=== PATIENT | male | born 1950 | race Caucasian/White ===

== ENCOUNTER 2017-02-11 11:46 | Inpatient (IN) | payer MEDICARE, OTHER ==
[~2017-02-11] VITALS: Ht 172.7 cm; Wt 92.3 kg
[~2017-02-11 11:46] MED LIST: CARV3.125; ENAL5TAB98; PACE200T4; SIMV20; Z.0.NO CURRENT MEDS
[2017-02-11 11:48] VITALS: BP 123/74; PULSE 79; RESP 18; TEMP 98; O2SAT 100
[2017-02-11] MEDS ORDERED: SODIUM CHLOR 0.9% 1000 ML INJ 1,000 ML IV ONE (11:53)
--- NOTE | 2017-02-11 11:58 | PD ---
HPI Chief Complaint: Stroke Alert Time Seen by Provider: 11:53 Travel History International Travel<30 days: No Contact w/Intl Traveler<30days: No Traveled to known affect area: No History of Present Illness HPI 66-year-old male patient with history of previous stroke with left-sided deficits the summer, presents to the ER today brought in by EMS because of aphasia that started while he was eating diner at around 11 AM. He apparently was drooling out of the corner of his mouth and speaking abnormally according to commercial production editor. He states that his speech is still not quite normal. He denies any other symptoms, chest pains, shortness of breath, new weakness or numbness, or any other issues. Stroke alert was called the field by EMS. Modifying Factors: None Associated Signs & Symptoms: Aphasia, stroke alert Risk Factors: Previous stroke PFSH Past Medical History Arthritis: Yes Cardiovascular Problems: Yes Cerebrovascular Accident: Yes Genitourinary: No Immune Disorder: No Musculoskeletal: Yes (R. ANKLE BONE FUSION, METAL PLATE R. FEMURAND CART. REMOVED FROM BOTH KNEES) Neurologic: No Psychiatric: No Reproductive: No Respiratory: No ?: Not Past Surgical History Abdominal Surgery: Yes (UMBIL. HERNIA REPAIR) Arteriovenous Shunt: No Cardiac Surgery: No Ear Surgery: No Endocrine Surgery: No Eye Surgery: No Genitourinary Surgery: Yes (INGUINAL HERNIA REPAIR ISAAC.) Gynecologic Surgery: No Insulin Pump: No Joint Replacement: No Oral Surgery: No Thoracic Surgery: No Social History Alcohol Use: Yes Tobacco Use: Yes Substance Use: No Allergies-Medications (Allergen,Severity, Reaction): Coded Allergies: diatrizoate meglumine (Unverified Allergy, Severe, Cardiac Arrest, 12/06/16 ) gadobenic acid (Unverified Allergy, Severe, Cardiac Arrest, 12/06/16) gadodiamide (Unverified Allergy, Severe, Cardiac Arrest, 12/06/16) gadoteridol (Unverified Allergy, Severe, Cardiac Arrest, 12/06/16) iodixanol (Unverified Allergy, Severe, Cardiac Arrest, 12/06/16) iohexol (Unverified Allergy, Severe, Cardiac Arrest, 12/06/16) Uncoded Allergies: ONE A DAY VIT (Allergy, Mild, 03/07/07) OWN SWEAT (Allergy, Mild, 03/07/07) Ppd skin test (Allergy, Mild, 03/07/07) ocean (Allergy, Mild, 03/07/07) Reported Meds & Prescriptions Reported Meds & Active Scripts Active Reported Vasotec (Enalapril Maleate) 5 Mg Tab Zocor (Simvastatin) 20 Mg Tab Coreg (Carvedilol) 3.125 Mg Tab Pacerone (Amiodarone HCl) 200 Mg Tab No Current Meds (Miscellaneous Medication) Misc Review of Systems Except as stated in HPI: all other systems reviewed are Neg Physical Exam Narrative GENERAL: Well-developed elderly white male patient currently in mild distress. Awake, alert, oriented 3. SKIN: Focused skin assessment warm/dry. HEAD: Atraumatic. Normocephalic. EYES: Pupils equal and round. No scleral icterus. No injection or drainage. ENT: No nasal bleeding or discharge. Mucous membranes pink and moist. NECK: Trachea midline. No JVD. CARDIOVASCULAR: Regular rate and rhythm. No murmur appreciated. RESPIRATORY: No accessory muscle use. Clear to auscultation. Breath sounds equal bilaterally. GASTROINTESTINAL: Abdomen soft, non-tender, nondistended. Hepatic and splenic margins not palpable. MUSCULOSKELETAL: No obvious deformities. No clubbing. No cyanosis. No edema. NEUROLOGICAL: Awake and alert. With notable left facial droop. No significant herniated drift. Mild aphasia. PSYCHIATRIC: Appropriate mood and affect; insight and judgment normal. Data Data Last Documented VS Vital Signs Date Time Temp Pulse Resp B/P (MAP) Pulse Ox O2 Delivery O2 Flow Rate FiO2 02/11/17 12:11 100 Room Air 02/11/17 12:11 59 112/54 (73) 02/11/17 11:48 98.0 18 Orders Orders Diet Npo (02/11/17 Lunch) Activity Bed Rest (02/11/17 ) Electrocardiogram (02/11/17 ) I-Stat Creatinine (02/11/17 11:53) I-Stat Profile (02/11/17 11:53) Prothrombin Time / Inr (Pt) (02/11/17 11:53) Act Partial Throm Time (Ptt) (02/11/17 11:53) Complete Blood Count With Diff (02/11/17 11:53) Fibrinogen (02/11/17 11:53) Creatine Kinase (Cpk) (02/11/17 11:53) Troponin I (02/11/17 11:53) Ua Includes Microscopic (02/11/17 11:53) Drug Screen, Random Urine (02/11/17 11:53) Type And Screen (02/11/17 11:53) Ct Brain W/O Iv Contrast(Rout) (02/11/17 ) Consult Neurology (02/11/17 ) Blood Glucose (02/11/17 11:53) Ecg Monitoring (02/11/17 11:53) Neuro Checks Q2HX12,Q4H (02/11/17 11:53) Nursing Bedside Swallow Assess .ONCE (02/11/17 11:53) Iv Access Insert/Monitor (02/11/17 11:53) NPO (02/11/17 11:53) Oximetry (02/11/17 11:53) Oxygen Administration (02/11/17 11:53) Sodium Chlor 0.9% 1000 Ml Inj (Ns 1000 M (02/11/17 11:53) Resp Oxygen Benja C Titrat 1-4 L (02/11/17 11:53) Cath For Specimen (02/11/17 11:53) (Hub Use Only)Inp Phy Cons/Ref (02/11/17 ) Aspirin (Aspirin) (02/11/17 12:45) Labs Laboratory Tests Test 02/11/17 11:50 White Blood Count 6.1 TH/MM3 Red Blood Count 4.85 MIL/MM3 Hemoglobin 14.6 GM/DL Bedside Hemoglobin 15.0 G/DL Hematocrit 43.3 % Bedside Hematocrit 44.0 % Mean Corpuscular Volume 89.3 FL Mean Corpuscular Hemoglobin 30.1 PG Mean Corpuscular Hemoglobin Concent 33.8 % Red Cell Distribution Width 13.8 % Platelet Count 190 TH/MM3 Mean Platelet Volume 7.4 FL Neutrophils (%) (Auto) 54.7 % Lymphocytes (%) (Auto) 33.0 % Monocytes (%) (Auto) 8.7 % Eosinophils (%) (Auto) 2.6 % Basophils (%) (Auto) 1.0 % Neutrophils # (Auto) 3.3 TH/MM3 Lymphocytes # (Auto) 2.0 TH/MM3 Monocytes # (Auto) 0.5 TH/MM3 Eosinophils # (Auto) 0.2 TH/MM3 Basophils # (Auto) 0.1 TH/MM3 CBC Comment DIFF FINAL Differential Comment Prothrombin Time 10.7 SEC Prothromb Time International Ratio 1.0 RATIO Activated Partial Thromboplast Time 29.9 SEC Fibrinogen 374 mg/dL Bedside Sodium 135 MMOL/L Bedside Potassium 4.0 MMOL/L Bedside Chloride 103 MMOL/L Bedside Blood Urea Nitrogen 21 MG/DL Bedside Creatinine 1.1 MG/DL Bedside Glucose 177 MG/DL Total Creatine Kinase 180 U/L Troponin I LESS THAN 0.02 NG/ML MDM Medical Screen Exam Complete: Yes Emergency Medical Condition: Yes Medical Record Reviewed: Yes Differential Diagnosis Stroke alert/aphagia: Rule out intracranial hemorrhage versus CVA versus TIA Narrative Course CAT scan was negative for any signs of acute intracranial processes. At this point, patient barely has symptoms in the ER. Case was discussed with Dr. Spencer who saw the patient, does not feel that this is a case that qualifies for TPA. He recommends aspirin and continue Plavix, and for admission for further evaluation especially because he has a pacemaker as well and it is unclear whether there was some event that happened causing this symptom. Case was then discussed with Dr. Way for admission. Stroke Alert NIHSS NIH Stroke Scale Result: 3 NIHSS Time Completed: 11:50 Thrombolytic Contraindications Contraindications Comment: Rapidly improving, not TPA candidate Diagnosis Diagnosis: Primary Impression: TIA (transient ischemic attack) Admitting Physician Requests: Admit Pat Phillips MD Feb 11, 2017 11:58
[2017-02-11 12:08] LABS: AUTOMATED NEUTROPHIL # 3.3 TH/MM3 (1.8-7.7); BASOPHIL # 0.1 TH/MM3 (0-0.2); EOSINOPHIL # 0.2 TH/MM3 (0-0.4); EOSINOPHIL % 2.6 % (0.0-4.0); HEMATOCRIT 43.3 % (39.0-51.0); HEMO FLAGS DIFF FINAL; MEAN CELL VOLUME 89.3 FL (80.0-100.0); MEAN CORPUSCULAR HEMOGLOBIN 30.1 PG (27.0-34.0); MEAN CORPUSCULAR HGB CONC 33.8 % (32.0-36.0); MONO % 8.7 % (0.0-8.0); NEUT % 54.7 % (16.0-70.0); PLATELET COUNT 190 TH/MM3 (150-450); RED BLOOD COUNT 4.85 MIL/MM3 (4.50-5.90); RED CELL DISTRIBUTION WIDTH 13.8 % (11.6-17.2); WHITE BLOOD COUNT 6.1 TH/MM3 (4.0-11.0)
[2017-02-11 12:09] LABS: I-STAT SODIUM 135 MMOL/L (138-146)
[2017-02-11 12:11] VITALS: BP 112/54; PULSE 59
--- NOTE | 2017-02-11 12:15 | RADRPT ---
EXAM DATE/TIME: 02/11/2017 12:00 [facility] COMPARISON: No previous studies available for comparison. INDICATIONS : Stroke alert, right sided weakness. RADIATION DOSE: 35.34 CTDIvol (mGy) This report was called by Dr. Morris to Dr. Phillips at 12: 11 PM MEDICAL HISTORY : Stroke. SURGICAL HISTORY : None. ENCOUNTER: Initial ACUITY: 1 day PAIN SCALE: Non-responsive LOCATION: Bilateral head TECHNIQUE: Multiple contiguous axial images were obtained of the head. Using automated exposure control and adj ustment of the mA and/or kV according to patient size, radiation dose was kept as low as reasonably a chievable to obtain optimal diagnostic quality images. DICOM format image data is available electro nically for review and comparison. FINDINGS: CEREBRUM: The ventricles and cortical sulci are widened. There is encephalomalacia involving the left parietal lobe. There also appears to be evidence of prior lacunar infarction at the left caudate. No evidence of midline shift, mass lesion, hemorrhage or acute infarction. No extra-axial fluid collections are seen. POSTERIOR FOSSA: The cerebellum and brainstem are intact. The 4th ventricle is midline. The cerebellopontine angle i s unremarkable. EXTRACRANIAL: The visualized portion of the orbits is intact. There is a smaller focal soft tissue swelling at the right frontal scalp. SKULL: The calvaria is intact. No evidence of skull fracture. CONCLUSION: 1. No acute intracranial abnormality is seen. 2. Evidence of prior left infarcts including the left parietal lobe and left caudate region. Encephal omalacia is seen in these areas. 3. Mild atrophy. 4. Focal soft tissue swelling in the right frontal scalp region which could be from area of injury or pre-existing skin lesion. Clayton Morris MD on February 11, 2017 at 12:10 Board Certified Radiologist. This report was verified electronically.
[2017-02-11 12:17] LABS: APTT (PATIENT) 29.9 SEC (24.3-30.1); PROTHROMBIN TIME - PATIENT 10.7 SEC (9.8-11.6)
[2017-02-11 12:28] LABS: CREATINE KINASE 180 U/L (39-308)
[2017-02-11] MEDS ORDERED: ASPIRIN 325 MG TAB PO ONE (12:45)
[2017-02-11] MEDS ORDERED: SODIUM CHLORIDE 0.9% FLUSH 5 ML FLUSH IV FLUSH PRN (13:15)
--- NOTE | 2017-02-11 13:43 | MB ---
cc: IMELDA JORDAN MD DATE OF CONSULTATION: 02/11/2017 REASON FOR CONSULTATION: Stroke alert. HISTORY OF PRESENT ILLNESS 66-year-old male with past medical history of two strokes diagnosed in October 2016, managed at [facility] with residual right-sided upper and lower extremity mild weakness and right facial droop. Currently on Plavix 75 mg. The patient also has history of cardiac disorder with pacemaker placed. The patient is not certain why the pacemaker was placed , and he is not certain why he is he on Plavix not on any other antiplatelet medication. The patient presented today with difficulty in speech. He felt unwell, "weird" while he was having dinner at around 11:00 a.m. and there was some drooling, denies face droop headache, double vision, blurred vision. He endorses feeling sweaty, denies feeling disoriented, he states that he knows what he wants to say but he was slow in producing his word. He denies any extremity weakness, loss of consciousness. EMS was called, he was brought into the hospital as a stroke alert by the time he is in the hospital his symptoms resolved his NIH stroke scale was one for the right facial droop that is clearly chronic. He is deemed not to be a candidate for IV TPA because of resolution of symptoms and low NIH stroke scale. Head CT scan was done which showed remote ischemic changes in no acute bleeding. REVIEW OF SYSTEMS A 12-point review of systems is negative except for what is stated in the HPI. PAST MEDICAL HISTORY 1. Cardiovascular disease status post pacemaker 2. Arthritis. 3. Hypertension. 4. Diabetes. PAST SURGICAL HISTORY Umbilical hernia repair Inguinal hernia repair Pacemaker. SOCIAL HISTORY Denies alcohol, tobacco and substance abuse. ALLERGIES IOHEXOL IODIXANOL GADODIAMIDE GADOBENIC ACID GADOTERIDOL DIATRIZOATE MEGLUMINE MEDICATIONS VASOTEC ZOCOR COREG PACERONE PHYSICAL EXAMINATION GENERAL: Awake, alert, good historian not in acute distress HEAD, EYES, EARS, NOSE, AND THROAT: Atraumatic, normocephalic. Intact hearing. Intact vision. NECK: Supple. No signs of meningeal irritation. CARDIOVASCULAR SYSTEM: Regular rate and rhythm. Bradycardia RESPIRATORY: Clear to auscultation. No wheezes, a pacemaker on the right upper chest. GASTROINTESTINAL: Soft, nontender. MUSCULOSKELETAL: No obvious deformity. No clubbing, no cyanosis. NEUROLOGIC: Awake, alert, oriented to time, person and place, No dysarthria, no dysphagia, Subtle right facial weakness / chronic no diplopia. No visual field defect. No nystagmus.Motor system examination subtle right shoulder abduction weakness of 5- / five. Subtle right hip flexion and foot dorsiflexion weakness five minus over five. Otherwise 5/5 throughout bilateral symmetrical. No abnormal movement normal tone. She sensation is intact to pain and temperature bilateral and symmetrical reflexes 1+ bilateral and symmetrical. Plantar's are bilaterally downgoing. The [id number], [id number] intact bilaterally. PSCYHIATRIC: Appropriate mood and affect. No visual hallucination. DIAGNOSTIC STUDIES/LABORATORY DATA Sodium 135, glucose was and 87, potassium four, white BC 6.1, hemoglobin 14, pain of 0.6, platelets 190, INR one. IMAGING STUDIES - Head CT scan revealed no acute intracranial abnormalities evidence of prior left infarct including the left parietal lobe and left caudate region. Encephalomalacia seen in these areas, mild atrophy, focal soft tissue swelling in the right frontal scalp lesion which could be from area of injury or preexisting skin lesion. Clinical impression: Patient with past medical history of two prior strokes involving the left parietal occipital region right, from the review of the head CT scan. This may be related to a possible watershed infarction. However we do not have records available at this time. At this time he presents with transient symptoms of speech difficulty. He is currently on Plavix. Neurological exam is unremarkable and he is not deemed a candidate for IV TPA because of low NIH stroke scale and almost a resolution of symptoms. DIAGNOSTIC IMPRESSION 1. TIA. 2. There are remote ischemic stroke symptoms 3. Hypertension. 4. Bradycardia 5. Coronary artery disease. 6. Hypertension. PLAN 1. Neuro checks q. four hourly 2. Telemetry. 3. Cardiac echo. 4. Carotid ultrasound 5. DVT prophylaxis. 6. Continue Plavix 75. 7. Add aspirin 81 mg 8. Obtain medical records from [facility] dated September and October 2016 for further review of records. DVT prophylaxis. Thank you for the opportunity participate in care of your patient. Imelda Jordan MD [facility]/ /12:48 PM /1:20 PM MERT
[2017-02-11] MEDS: ENOXAPARIN SODIUM 30 MG/0.3 ML SYRINGE SQ SCH (15:08)
[2017-02-11] MEDS: SODIUM CHLORIDE 0.9% FLUSH 5 ML FLUSH IV FLUSH SCH (15:09)
[2017-02-11 15:22] VITALS: BP 122/71
[2017-02-11 16:00] VITALS: BP 135/64; PULSE 60; RESP 16; TEMP 97.6; O2SAT 98
--- NOTE | 2017-02-11 16:54 | EKG ---
Date Performed: 02/11/2017 Time Performed: 12:08:44 PTAGE: 66 years EKG: ELECTRONIC ATRIAL PACEMAKER NONSPECIFIC ST & T-WAVE ABNORMALITY ABNORMAL RHYTHM ECG PREVIOUS TRACING : 03/07/2007 22.36 Compared to previous tracing elctronic atrial pacing is now present DOCTOR: Tomasa Hammer Interpretating Date/Time 02/11/2017 16:53:03
--- NOTE | 2017-02-11 18:28 | RADRPT ---
EXAM DATE/TIME: 02/11/2017 17:27 [facility] COMPARISON: No previous studies available for comparison. INDICATIONS : Transient ischemic attack. MEDICAL HISTORY : Cerebrovascular accident. Hernia, umbilical. Hernia, inguinal. SURGICAL HISTORY : Umbilical hernia repair. Inguinal hernia repair. Right ankle bone fusion. Bilateral knee cartilage removal. ENCOUNTER: Initial ACUITY: 1 day PAIN SCORE: 1/10 LOCATION: Bilateral neck PEAK SYSTOLIC VELOCITIES (cm/sec): ICA/CCA RATIO: Right: 1.1 Left: UTO ICA: Right: 69.8 Left: UTO CCA: Right: 62.2 Left: 62.1 ECA: Right: 87.9 Left: 95.7 VERTEBRAL: Right: 56.9 antegrade Left: 58.3 antegrade Elevated flow velocities and ICA/CCA ratios have been found to correlate with increased degrees of vessel stenosis, calculated as percentage of diameter relative to a normal segment of distal ICA/CCA FINDINGS: RIGHT CAROTID: No significant stenosis is visualized. The waveforms are within normal limits. LEFT CAROTID: ICA is occluded throughout its extracranial course. VERTEBRAL ARTERIES: Antegrade flow is seen in both vertebral arteries. MISCELLANEOUS: None. CONCLUSION: 1. Occluded left ICA. 2. Patent right carotid. 3. Antegrade flow involving both vertebral arteries. Juan Love Jr., MD on February 11, 2017 at 18:22 Board Certified Radiologist. This report was verified electronically.
[2017-02-11 19:00] VITALS: PULSE 63
[2017-02-11 20:00] VITALS: BP 139/67; PULSE 62; RESP 20; TEMP 97.5; O2SAT 98
[2017-02-11] MEDS: ACETAMIN 325 MG/BUTALBITAL 50 MG/CAFFEINE 40 MG TAB PO PRN (21:01)
[2017-02-12] VITALS (8 sets, daily range): BP systolic 130–166; BP diastolic 62–72; PULSE 60–64; RESP 20; TEMP 97.5–98.8; O2SAT 97–99
--- NOTE | 2017-02-12 09:46 | HHI.HP ---
History of Present Illness Primary Care Physician [facility] Admission Diagnosis stroke alert/TIA/aphasia Diagnoses: History of Present Illness pt became diaphoretic and had slurred speech while at breakfast yesterday presented to ED cant remember home meds but has amiodarone listed states he had cardiac shah a few years ago yhinks it was with quadrat Review of Systems Constitutional: COMPLAINS OF: Diaphoretic episodes Neurologic: COMPLAINS OF: Speech Problems Past Family Social History Allergies: Coded Allergies: diatrizoate meglumine (Unverified Allergy, Severe, Cardiac Arrest, 12/06/16 ) gadobenic acid (Unverified Allergy, Severe, Cardiac Arrest, 12/06/16) gadodiamide (Unverified Allergy, Severe, Cardiac Arrest, 12/06/16) gadoteridol (Unverified Allergy, Severe, Cardiac Arrest, 12/06/16) iodixanol (Unverified Allergy, Severe, Cardiac Arrest, 12/06/16) iohexol (Unverified Allergy, Severe, Cardiac Arrest, 12/06/16) Uncoded Allergies: ONE A DAY VIT (Allergy, Mild, 03/07/07) OWN SWEAT (Allergy, Mild, 03/07/07) Ppd skin test (Allergy, Mild, 03/07/07) ocean (Allergy, Mild, 03/07/07) Past Medical History vascular disease hypertension hyperlipidemia Past Surgical History femoral stents Reported Medications Reported Meds & Active Scripts Active Reported Vasotec (Enalapril Maleate) 5 Mg Tab Zocor (Simvastatin) 20 Mg Tab Coreg (Carvedilol) 3.125 Mg Tab Pacerone (Amiodarone HCl) 200 Mg Tab No Current Meds (Miscellaneous Medication) Misc Active Ordered Medications Inpatient Medications Acetaminophen/ Butalbital/ Caffeine (Fioricet 325-50-40) 2 tab Q4H PRN PO HEADACHE Last administered on 02/11/17 21:01; Start 02/11/17 at 17:30 Aspirin (Aspirin) 325 mg ONCE ONCE PO Last administered on 02/11/17 12:56; Start 02/11/17 at 12:45; Stop 02/11/17 at 12:46; Status DC Enoxaparin Sodium (Lovenox Inj) 30 mg Q24H SQ Last administered on 02/11/17 15:08; Start 02/11/17 at 14:00 IV Flush (NS Flush) 2 ml UNSCH PRN IV FLUSH FLUSH AFTER USING IV ACCESS; Start 02/11/17 at 13:15 Sodium Chloride 1,000 ml @ 70 mls/hr [id number] ONCE IV Last administered on t 12:55; Start 02/11/17 at 11:53; Stop 02/12/17 at 02:10; Status DC Family History father with heart disease mother in old age Social History smokes 1/2 ppd daily drinker Physical Exam Vital Signs Vital Signs Date Time Temp Pulse Resp B/P (MAP) Pulse Ox O2 Delivery O2 Flow Rate FiO2 02/12/17 09:09 97 02/12/17 08:11 97.5 62 20 166/72 (103) 97 02/12/17 04:00 97.9 60 20 145/67 (93) 97 02/12/17 01:29 98 21 02/11/17 20:00 97.5 62 20 139/67 (91) 98 02/11/17 19:00 63 02/11/17 16:00 97.6 60 16 135/64 (87) 98 02/11/17 15:22 122/71 (88) 100 02/11/17 12:11 100 Room Air 02/11/17 12:11 59 112/54 (73) Room Air 02/11/17 11:48 98.0 79 18 123/74 (90) 100 Physical Exam GENERAL: This is a well-nourished, well-developed patient, in no apparent distress. SKIN: No rashes, ecchymoses or lesions. Cool and dry. HEAD: Atraumatic. Normocephalic. No temporal or scalp tenderness. EYES: Pupils equal round and reactive. Extraocular motions intact. No scleral icterus. No injection or drainage. ENT: Nose without bleeding, purulent drainage or septal hematoma. Throat without erythema, tonsillar hypertrophy or exudate. Uvula midline. Airway patent. NECK: Trachea midline. No JVD or lymphadenopathy. Supple, nontender, no meningeal signs. CARDIOVASCULAR: Regular rate and rhythm without murmurs, gallops, or rubs. RESPIRATORY: Clear to auscultation. Breath sounds equal bilaterally. No wheezes , rales, or rhonchi. GASTROINTESTINAL: Abdomen soft, non-tender, nondistended. No hepato-splenomegaly , or palpable masses. No guarding. MUSCULOSKELETAL: Extremities without clubbing, cyanosis, or edema. No joint tenderness, effusion, or edema noted. No calf tenderness. Negative Homans sign bilaterally. NEUROLOGICAL: Awake and alert. Cranial nerves II through XII intact. memory poor Motor and sensory grossly within normal limits. Normal speech. Laboratory Laboratory Tests Test 02/11/17 11:50 White Blood Count 6.1 Red Blood Count 4.85 Hemoglobin 14.6 Bedside Hemoglobin 15.0 Hematocrit 43.3 Bedside Hematocrit 44.0 Mean Corpuscular Volume 89.3 Mean Corpuscular Hemoglobin 30.1 Mean Corpuscular Hemoglobin Concent 33.8 Red Cell Distribution Width 13.8 Platelet Count 190 Mean Platelet Volume 7.4 Neutrophils (%) (Auto) 54.7 Lymphocytes (%) (Auto) 33.0 Monocytes (%) (Auto) 8.7 Eosinophils (%) (Auto) 2.6 Basophils (%) (Auto) 1.0 Neutrophils # (Auto) 3.3 Lymphocytes # (Auto) 2.0 Monocytes # (Auto) 0.5 Eosinophils # (Auto) 0.2 Basophils # (Auto) 0.1 CBC Comment DIFF FINAL Differential Comment Prothrombin Time 10.7 Prothromb Time International Ratio 1.0 Activated Partial Thromboplast Time 29.9 Fibrinogen 374 Bedside Sodium 135 Bedside Potassium 4.0 Bedside Chloride 103 Bedside Blood Urea Nitrogen 21 Bedside Creatinine 1.1 Bedside Glucose 177 Total Creatine Kinase 180 Troponin I LESS THAN 0.02 Result Diagram: 02/11/17 1150 Imaging Last Impressions Head CT 02/11/17 0000 Signed Impressions: Service Date/Time: Saturday, February 11, 2017 12:00 - CONCLUSION: 1. No acute intracranial abnormality is seen. 2. Evidence of prior left infarcts including the left parietal lobe and left caudate region. Encephalomalacia is seen in these areas. 3. Mild atrophy. 4. Focal soft tissue swelling in the right frontal scalp region which could be from area of injury or pre-existing skin lesion. Clayton Morris MD Carotid Artery Ultrasound 02/11/17 0000 Signed Impressions: Service Date/Time: Saturday, February 11, 2017 17:27 - CONCLUSION: 1. Occluded left ICA. 2. Patent right carotid. 3. Antegrade flow involving both vertebral arteries. Juan Love Jr., MD Course no further episodes since admission Caprini VTE Risk Assessment Caprini VTE Risk Assessment: No/Low Risk (score <= 1) Caprini Risk Assessment Model Point Value = 1 Point Value = 2 Point Value = 3 Point Value = 5 Age 41-60 Minor surgery BMI > 25 kg/m2 Swollen legs Varicose veins or History of unexplained or recurrent spontaneous Oral contraceptives or hormone replacement Sepsis (< 1 month) Serious lung disease, including pneumonia (< 1 month) Abnormal pulmonary function Acute myocardial infarction Congestive heart failure (< 1 month) History of inflammatory bowel disease Medical patient at bed rest Age 61-74 Arthroscopic surgery Major open surgery (> 45 min) Laparoscopic surgery (> 45 min) Malignancy Confined to bed (> 72 hours) Immobilizing plaster cast Central venous access Age >= 75 History of VTE Family history of VTE Factor V Leiden Prothrombin [id number] Lupus anticoagulant Anticardiolipin antibodies Elevated serum homocysteine Heparin-induced thrombocytopenia Other congenital or acquired thrombophilia Stroke (< 1 month) Elective arthroplasty Hip, pelvis, or leg fracture Acute spinal cord injury (< 1 month) Prophylaxis Regimen Total Risk Factor Score Risk Level Prophylaxis Regimen 0-1 Low Early ambulation 2 Moderate Order ONE of the following: *Sequential Compression Device (SCD) *Heparin 5000 units SQ BID 3-4 Higher Order ONE of the following medications: *Heparin 5000 units SQ TID *Enoxaparin/Lovenox 40 mg SQ daily (WT < 150 kg, CrCl > 30 mL/min) *Enoxaparin/Lovenox 30 mg SQ daily (WT < 150 kg, CrCl > 10-29 mL/min) *Enoxaparin/Lovenox 30 mg SQ BID (WT < 150 kg, CrCl > 30 mL/min) AND/OR *Sequential Compression Device (SCD) 5 or more Highest Order ONE of the following medications: *Heparin 5000 units SQ TID (Preferred with Epidurals) *Enoxaparin/Lovenox 40 mg SQ daily (WT < 150 kg, CrCl > 30 mL/min) *Enoxaparin/Lovenox 30 mg SQ daily (WT < 150 kg, CrCl > 10-29 mL/min) *Enoxaparin/Lovenox 30 mg SQ BID (WT < 150 kg, CrCl > 30 mL/min) AND *Sequential Compression Device (SCD) Assessment and Plan Problem List: (1) TIA (transient ischemic attack) ICD Codes: G45.9 - Transient cerebral ischemic attack, unspecified Status: Acute Plan: consult cardiology Discharge Planning [place] Danny Alvarez DO Feb 12, 2017 09:46
[2017-02-12 12:12] LABS: HDL CHOLESTEROL 41.1 MG/DL (40.0-60.0); LDL CHOLESTEROL 148 MG/DL (0-99)
[2017-02-12] MEDS: ENOXAPARIN SODIUM 30 MG/0.3 ML SYRINGE SQ SCH (13:17)
[2017-02-12 13:56] LABS: HEMOGLOBIN A1b 1.9 %; HEMOGLOBIN Ao 83.7 %; HEMOGLOBIN LA1C 2.6 %
--- NOTE | 2017-02-12 15:53 | PD.CONS ---
HPI Service Cardiology Consult Requested By Hospitalist Reason for Consult TIA Primary Care Physician Unknown History of Present Illness Mr. Sosa is a pleasant 66 y/o male known to Dr. Hammer. He was admitted yesterday with complaints of weakness, slurred speech and diaphoresis that occurred while he was eating breakfast at a restaurant. 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 His symptoms resolved upon arrival to the ED. He is a poor historian, PMH was obtained from chart. 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 He has a pacemaker and is not sure the last time it was checked. CT of the head showed remote ischemic changes, no acute bleeding. He is currently in sinus rhythm, rate 60. He is sitting in the chair, talking on the phone with his sister. Denies chest pain, syncope or complaints. Review of Systems Consitutional: DENIES: Fatigue, Fever, Chills, Weight gain, Weight loss Eyes: DENIES: Amaurosis F[place], Change in vision HEENT: DENIES: Lightheadedness, Change in hearing Respiratory: DENIES: See HPI, Cough, Snoring, Shortness of breath, Wheezing, Sputum production Cardiovascular: DENIES: See HPI, Chest pain, Palpitations, Syncope, Tachycardia Gastrointestinal: DENIES: Nausea, Vomiting, Change in bowel habits, Reflux, Bloody stools, Melena Genitourinary: DENIES: Urinary incontinence, Difficulty voiding Integumentary: DENIES: Rash Neurologic: COMPLAINS OF: Memory problems, DENIES: Tingling or numbness, Poor Balance, Stroke symptoms Musculoskeletal: DENIES: Joint pain, Muscle pain, Limited range of motion, Back pain Psychiatric: DENIES: Anxiety, Depression, Sleep disturbances Hematologic: DENIES: Bruising tendencies, Bleeding tendencies Endocrine: DENIES: Weight gain, Weight loss, Thyroid disease Past Family Social History Allergies: Coded Allergies: diatrizoate meglumine (Unverified Allergy, Severe, Cardiac Arrest, 12/06/16 ) gadobenic acid (Unverified Allergy, Severe, Cardiac Arrest, 12/06/16) gadodiamide (Unverified Allergy, Severe, Cardiac Arrest, 12/06/16) gadoteridol (Unverified Allergy, Severe, Cardiac Arrest, 12/06/16) iodixanol (Unverified Allergy, Severe, Cardiac Arrest, 12/06/16) iohexol (Unverified Allergy, Severe, Cardiac Arrest, 12/06/16) Uncoded Allergies: ONE A DAY VIT (Allergy, Mild, 03/07/07) OWN SWEAT (Allergy, Mild, 03/07/07) Ppd skin test (Allergy, Mild, 03/07/07) ocean (Allergy, Mild, 03/07/07) Past Medical History CVA x 23 October 2016 CAD Paroxysmal atrial fibrillation CAD Past Surgical History unable to recall Reported Medications Reported Meds & Active Scripts Active Reported Vasotec (Enalapril Maleate) 5 Mg Tab Zocor (Simvastatin) 20 Mg Tab Coreg (Carvedilol) 3.125 Mg Tab Pacerone (Amiodarone HCl) 200 Mg Tab No Current Meds (Miscellaneous Medication) Misc Active Ordered Medications Current Medications Medications (Trade) Dose Ordered Sig/Veena Route Start Time Stop Time Status Last Admin (NS Flush) 2 ml BID IV FLUSH 02/11/17 21:00 02/11/17 15:09 (NS Flush) 2 ml UNSCH PRN IV FLUSH 02/11/17 13:15 02/12/17 11:40 (Lovenox Inj) 30 mg Q24H SQ 02/11/17 14:00 02/12/17 13:17 (Fioricet 325-50-40) 2 tab Q4H PRN PO 02/11/17 17:30 02/11/17 21:01 Family History unable to obtain, poor historian Social History Single, lives alone Non-smoker, non-drinker Physical Exam Vital Signs Vital Signs Date Time Temp Pulse Resp B/P (MAP) Pulse Ox O2 Delivery O2 Flow Rate FiO2 02/12/17 11:19 98.1 61 20 139/64 (89) 98 02/12/17 09:09 97 02/12/17 08:11 97.5 62 20 166/72 (103) 97 02/12/17 07:00 60 02/12/17 04:00 97.9 60 20 145/67 (93) 97 02/12/17 01:29 98 21 02/11/17 20:00 97.5 62 20 139/67 (91) 98 02/11/17 19:00 63 02/11/17 16:00 97.6 60 16 135/64 (87) 98 Physical Exam GENERAL: Awake, alert. No distress. SKIN: Warm and dry. Abrasion to right scalp. HEAD: Normocephalic. EYES: Pupils equal and round. No scleral icterus. No injection or drainage. ENT: No nasal bleeding or discharge. Mucous membranes pink and moist. NECK: Trachea midline. No JVD. CARDIOVASCULAR: Regular rate and rhythm. RESPIRATORY: No accessory muscle use. Clear to auscultation. Breath sounds equal bilaterally. GASTROINTESTINAL: Abdomen soft, non-tender, nondistended. Hepatic and splenic margins not palpable. MUSCULOSKELETAL: Extremities without clubbing, cyanosis, or edema. No obvious deformities. NEUROLOGICAL: Awake and alert. R sided weakness. Slow speech. Poor memory recall. PSYCHIATRIC: Appropriate mood and affect. Laboratory Laboratory Tests Test 02/12/17 11:17 Hemoglobin A1c 6.5 Triglycerides Level 199 Cholesterol Level 229 LDL Cholesterol 148 HDL Cholesterol 41.1 Cholesterol/HDL Ratio 5.57 Result Diagram: 02/11/17 1150 Assessment and Plan Assessment and Plan TIA History of recent CVA x 2 in October Paroxysmal atrial fibrillation History of symptomatic bradycardia S/P [employer] PPM. CAD Hypertension Hyperlipidemia Currently in sinus rhythm. He is on aspirin, plavix. Recommend full anticoagulation if there is no history of GI or other bleeding. Patient is poor historian. Will have his pacemaker interrogated. Dr. Hammer to follow tomorrow. Code Status Full Discussed Condition With Roseline Augustin Feb 12, 2017 15:53
[2017-02-12] MEDS: ACETAMIN 325 MG/BUTALBITAL 50 MG/CAFFEINE 40 MG TAB PO PRN ×2 (18:58→20:11)
[2017-02-12] MEDS: SODIUM CHLORIDE 0.9% FLUSH 5 ML FLUSH IV FLUSH SCH (20:12)
--- NOTE | 2017-02-12 23:16 | HHI.PR ---
Review/Management Diagnosis - Stroke aler, not a tPA candidate, due to resolution of symptoms - TIA -Hypertension. - Bradycardia - Coronary artery disease. - Hypertension. Plan - Patient is stable from neurology standpoint - No acute neurologic deficit, current neurologic exam findings are secondary to a remote ischemic stroke - Neurologic investigations are unremarkable for an acute intracranial abnormality - Continue Plavix 75. - Add aspirin 81 mg - Patient may follow up with outpatient neurology, he usally follows up with Dr. Bueno - Please call for questions Diagnosis/Plan: Subjective Subjective Comments No acute events reported Patient reports he is back to normal CUS revealed an occluded left ICA, patient states today " I have always known about this" Unable to do CTA, given severe allergy to iv contrast material Active Medications Current Medications Medications (Trade) Dose Ordered Sig/Veena Route Start Time Stop Time Status Last Admin (NS Flush) 2 ml BID IV FLUSH 02/11/17 21:00 02/12/17 20:12 (NS Flush) 2 ml UNSCH PRN IV FLUSH 02/11/17 13:15 02/12/17 11:40 (Lovenox Inj) 30 mg Q24H SQ 02/11/17 14:00 02/12/17 13:17 (Fioricet 325-50-40) 2 tab Q4H PRN PO 02/11/17 17:30 02/12/17 20:11 Allergies Allergies Coded Allergies diatrizoate meglumine (Unverified Allergy, Severe, Cardiac Arrest, 12/06/16) gadobenic acid (Unverified Allergy, Severe, Cardiac Arrest, 12/06/16) gadodiamide (Unverified Allergy, Severe, Cardiac Arrest, 12/06/16) gadoteridol (Unverified Allergy, Severe, Cardiac Arrest, 12/06/16) iodixanol (Unverified Allergy, Severe, Cardiac Arrest, 12/06/16) iohexol (Unverified Allergy, Severe, Cardiac Arrest, 12/06/16) Uncoded Allergies ONE A DAY VIT ( Allergy, Mild, 03/07/07) OWN SWEAT ( Allergy, Mild, 03/07/07) Ppd skin test ( Allergy, Mild, 03/07/07) ocean ( Allergy, Mild, 03/07/07) Review of Systems All other ROS: ROS reviewed as documented in chart Exam I&O / VS 02/12/17 02/12/17 02/13/17 15:00 23:00 07:00 Intake Total 720 ml Balance 720 ml Intake Oral 720 ml # Voids 5 # Bowel Movements 0 Vital Signs Date Time Temp Pulse Resp B/P (MAP) Pulse Ox O2 Delivery O2 Flow Rate FiO2 02/12/17 20:00 98.8 62 20 145/64 (91) 99 02/12/17 16:10 98.1 64 20 130/62 (84) 97 02/12/17 11:19 98.1 61 20 139/64 (89) 98 02/12/17 09:09 97 02/12/17 08:11 97.5 62 20 166/72 (103) 97 02/12/17 07:00 60 02/12/17 04:00 97.9 60 20 145/67 (93) 97 02/12/17 01:29 98 21 Exam Comments GENERAL: Awake, alert, good historian not in acute distress HEAD, EYES, EARS, NOSE, AND THROAT: Atraumatic, normocephalic. Intact hearing. Intact vision. NECK: Supple. No signs of meningeal irritation. CARDIOVASCULAR SYSTEM: Regular rate and rhythm. Bradycardia RESPIRATORY: Clear to auscultation. No wheezes, a pacemaker on the right upper chest. GASTROINTESTINAL: Soft, nontender. MUSCULOSKELETAL: No obvious deformity. No clubbing, no cyanosis. NEUROLOGIC: Awake, alert, oriented to time, person and place, No dysarthria, no dysphagia, Subtle right facial weakness / chronic no diplopia. No visual field defect. No nystagmus.Motor system examination subtle right shoulder abduction weakness 5 -/5. Subtle right hip flexion and foot dorsiflexion weakness five minus over five. Otherwise 5/5 throughout bilateral symmetrical. No abnormal movement, spastic tone. Sensation is intact to pain and temperature bilateral and symmetrical reflexes 1+ bilateral and symmetrical. Plantar's are bilaterally downgoing. The [id number], [id number] intact bilaterally. PSCYHIATRIC: Appropriate mood and affect. No visual hallucination. Objective Radiology Results Last [address] 02/11/17 0000 Signed Impressions: Service Date/Time: Saturday, February 11, 2017 12:00 - CONCLUSION: 1. No acute intracranial abnormality is seen. 2. Evidence of prior left infarcts including the left parietal lobe and left caudate region. Encephalomalacia is seen in these areas. 3. Mild atrophy. 4. Focal soft tissue swelling in the right frontal scalp region which could be from area of injury or pre-existing skin lesion. Clayton Morris MD Carotid Artery Ultrasound 02/11/17 0000 Signed Impressions: Service Date/Time: Saturday, February 11, 2017 17:27 - CONCLUSION: 1. Occluded left ICA. 2. Patent right carotid. 3. Antegrade flow involving both vertebral arteries. Juan Love Jr., MD Micro and Labs Laboratory Tests Test 02/12/17 11:17 Hemoglobin A1c 6.5 Triglycerides Level 199 Cholesterol Level 229 LDL Cholesterol 148 HDL Cholesterol 41.1 Cholesterol/HDL Ratio 5.57 Aide Jordan MD Feb 12, 2017 23:16
[2017-02-13] VITALS (10 sets, daily range): BP systolic 129–150; BP diastolic 59–70; PULSE 44–70; RESP 17–20; TEMP 97.3–98.4; O2SAT 98–99
--- NOTE | 2017-02-13 08:04 | ECHRPT ---
Indication: cva/tia CONCLUSIONS Normal left ventricular size. Wall thickness is normal. The left ventricular systolic function is severely reduced with an estimated ejection fraction in th e range of 30-35%. Global hypokinesis. Trace mitral valve regurgitation. Technically difficult study with many views off-axis. BP: / HR: Rhythm: MEASUREMENTS (Male / Female) Normal Values Technical Quality:Technically difficult study 2D ECHO LV Diastolic Diameter PLAX 4.3 cm 4.2 - 5.9 / 3.9 - 5.3 cm LV Systolic Diameter PLAX 3.6 cm IVS Diastolic Thickness 1.1 cm 0.6 - 1.0 / 0.6 - 0.9 cm LVPW Diastolic Thickness 0.9 cm 0.6 - 1.0 / 0.6 - 0.9 cm LV Relative Wall Thickness 0.5 RV Internal Dim ED PLAX 1.8 cm LA Systolic Diameter LX 3.6 cm 3.0 - 4.0 / 2.7 - 3.8 cm DOPPLER Mitral E Point Velocity 85.8 cm/s Mitral A Point Velocity 110.0 cm/s Mitral E to A Ratio 0.8 TR Peak Velocity 156.5 cm/s TR Peak Gradient 9.8 mmHg FINDINGS LEFT VENTRICLE Normal left ventricular size. Wall thickness is normal. The left ventricular systolic function is severely reduced with an estimated ejection fraction in th e range of 30-35%. Global hypokinesis. RIGHT VENTRICLE A pacemaker wire is noted. LEFT ATRIUM The left atrial size is normal. RIGHT ATRIUM The right atrial size is normal. ATRIAL SEPTUM Normal atrial septal thickness without atrial level shunting by limited color doppler interrogation. AORTA The aortic root and proximal ascending aorta are normal in size on limited imaging. MITRAL VALVE Trace mitral valve regurgitation. AORTIC VALVE Trileaflet aortic valve. No aortic valve stenosis or regurgitation. TRICUSPID VALVE Structurally normal tricuspid valve. No tricuspid valve stenosis or regurgitation. PULMONARY VALVE The pulmonary valve is not well visualized. VESSELS The inferior vena cava is normal in size. PERICARDIUM No pericardial effusion. Siddharth Pelletier MD (Electronically Signed) Final Date:13 February 2017 08:04
[2017-02-13] MEDS: SODIUM CHLORIDE 0.9% FLUSH 5 ML FLUSH IV FLUSH SCH ×2 (08:57→21:54)
--- NOTE | 2017-02-13 11:57 | HHI.PR ---
Subjective Remarks Patient sitting up on side of bed. Alert and oriented in good spirits. Objective Vital Signs Date Time Temp Pulse Resp B/P (MAP) Pulse Ox O2 Delivery O2 Flow Rate FiO2 02/13/17 11:44 97.6 64 17 150/70 (96) 99 02/13/17 09:25 99 02/13/17 08:13 97.3 70 17 147/69 (95) 99 02/13/17 08:00 64 02/13/17 04:00 98.4 63 18 131/59 (83) 98 02/13/17 00:23 98.1 60 18 134/62 (86) 98 02/12/17 20:00 98.8 62 20 145/64 (91) 99 02/12/17 16:10 98.1 64 20 130/62 (84) 97 I/O 02/12/17 02/12/17 02/12/17 02/13/17 02/13/17 02/13/17 07:00 15:00 23:00 07:00 15:00 23:00 Intake Total 720 ml Output Total 550 ml 1000 ml 1250 ml 100 ml Balance -550 ml 720 ml -1000 ml -1250 ml -100 ml Intake Oral 720 ml Output Urine Total 550 ml 1000 ml 1250 ml 100 ml # Voids 5 # Bowel Movements 0 0 0 Result Diagram: 02/11/17 1150 Objective Remarks GENERAL: Alert and coopertive. SKIN: Warm and dry. HEAD: Normocephalic. EYES: No scleral icterus. No injection or drainage. NECK: Supple, trachea midline. No JVD or lymphadenopathy. CARDIOVASCULAR: Regular rate and rhythm without murmurs, gallops, or rubs. RESPIRATORY: Breath sounds equal bilaterally. No accessory muscle use. GASTROINTESTINAL: Abdomen soft, non-tender, nondistended. MUSCULOSKELETAL: No cyanosis, or edema. BACK: Nontender without obvious deformity. No CVA tenderness. Medications and IVs Current Medications Medications (Trade) Dose Ordered Sig/Veena Route Start Time Stop Time Status Last Admin (NS Flush) 2 ml BID IV FLUSH 02/11/17 21:00 02/13/17 08:57 (NS Flush) 2 ml UNSCH PRN IV FLUSH 02/11/17 13:15 02/12/17 11:40 (Lovenox Inj) 30 mg Q24H SQ 02/11/17 14:00 02/12/17 13:17 (Fioricet 325-50-40) 2 tab Q4H PRN PO 02/11/17 17:30 02/12/17 20:11 Assessment and Plan Problem List: (1) TIA (transient ischemic attack) ICD Codes: G45.9 - Transient cerebral ischemic attack, unspecified Status: Acute (2) Paroxysmal a-fib ICD Codes: I48.0 - Paroxysmal atrial fibrillation Status: Chronic (3) CAD (coronary artery disease) ICD Codes: I25.10 - Atherosclerotic heart disease of [place] coronary artery without angina pectoris Status: Chronic (4) GERD (gastroesophageal reflux disease) ICD Codes: K21.9 - Gastro-esophageal reflux disease without esophagitis Status: Chronic (5) HLD (hyperlipidemia) ICD Codes: E78.5 - Hyperlipidemia, unspecified Status: Chronic Assessment and Plan 01/14/17 TIA: Neurology consulted. On plavix and statin. Patient is stable from neurology standpoint. No acute neurologic deficit noted. Follow up recommended outpatient HLD: Home dose of statin ordered GERD: Protonix resumed PAFIb: Cardiology consulted recommended full anticoagulation. Patient with pacemaker. Interrogation ordered. HTN: Coreg resumed at half previous dose will monitor. GI and DVT prophylaxis. Plan for discharge home tomorrow with [facility]. Face to face done. Labs ordered for today. I and the CORN HUSKER have both examined this patient and reviewed this note and I agree with these findings and plan of care. Danny Alvarez DO Discharge Planning home with [facility] Radha Dickerson Feb 13, 2017 11:57
[2017-02-13] MEDS: ENOXAPARIN SODIUM 30 MG/0.3 ML SYRINGE SQ SCH (13:02)
[2017-02-13] MEDS: CLOPIDOGREL 75 MG TAB PO SCH (13:28)
[2017-02-13] MEDS: PANTOPRAZOLE SOD 20 MG DELAYED RELEASE TAB PO SCH (13:28)
[2017-02-13] MEDS: CARVEDILOL 6.25 MG TAB PO SCH ×2 (13:28→21:52)
--- NOTE | 2017-02-13 14:39 | PD.CARD.PN ---
Subjective Subjective Remarks The patient denies CP or SOB. Denies recurrent TIA symptoms. (Rena Smith) Objective Medications Current Medications Medications (Trade) Dose Ordered Sig/Veena Route Start Time Stop Time Status Last Admin (NS Flush) 2 ml BID IV FLUSH 02/11/17 21:00 02/13/17 08:57 (NS Flush) 2 ml UNSCH PRN IV FLUSH 02/11/17 13:15 02/12/17 11:40 (Lovenox Inj) 30 mg Q24H SQ 02/11/17 14:00 02/13/17 13:02 (Fioricet 325-50-40) 2 tab Q4H PRN PO 02/11/17 17:30 02/12/17 20:11 (Plavix) 75 mg DAILY PO 02/13/17 12:15 02/13/17 13:28 (Coreg) 6.25 mg Q12HR PO 02/13/17 12:15 02/13/17 13:28 (Lipitor) 80 mg HS PO 02/13/17 21:00 (Protonix) 20 mg DAILY PO 02/13/17 12:15 02/13/17 13:28 Vital Signs / I&O Vital Signs Date Time Temp Pulse Resp B/P (MAP) Pulse Ox O2 Delivery O2 Flow Rate FiO2 02/13/17 11:44 97.6 64 17 150/70 (96) 99 02/13/17 09:25 99 02/13/17 08:13 97.3 70 17 147/69 (95) 99 02/13/17 08:00 64 02/13/17 04:00 98.4 63 18 131/59 (83) 98 02/13/17 00:23 98.1 60 18 134/62 (86) 98 02/12/17 20:00 98.8 62 20 145/64 (91) 99 02/12/17 16:10 98.1 64 20 130/62 (84) 97 I/O 02/12/17 02/12/17 02/12/17 02/13/17 02/13/17 02/13/17 07:00 15:00 23:00 07:00 15:00 23:00 Intake Total 720 ml Output Total 550 ml 1000 ml 1250 ml 100 ml Balance -550 ml 720 ml -1000 ml -1250 ml -100 ml Intake Oral 720 ml Output Urine Total 550 ml 1000 ml 1250 ml 100 ml # Voids 5 # Bowel Movements 0 0 0 Physical Exam GENERAL: Elderly male sitting up in the chair SKIN: Warm and dry. HEAD: Normocephalic. EYES: No scleral icterus. No injection or drainage. NECK: Supple, trachea midline. No JVD or lymphadenopathy. CARDIOVASCULAR: Regular rate and rhythm without murmurs, gallops, or rubs. RIGHT chest ICD RESPIRATORY: Breath sounds equal bilaterally. No accessory muscle use. GASTROINTESTINAL: Abdomen soft, non-tender, nondistended. MUSCULOSKELETAL: Right hemisphere deficits BACK: Nontender without obvious deformity. No CVA tenderness. Imaging Last [address] 02/11/17 0000 Signed Impressions: Service Date/Time: Saturday, February 11, 2017 12:00 - CONCLUSION: 1. No acute intracranial abnormality is seen. 2. Evidence of prior left infarcts including the left parietal lobe and left caudate region. Encephalomalacia is seen in these areas. 3. Mild atrophy. 4. Focal soft tissue swelling in the right frontal scalp region which could be from area of injury or pre-existing skin lesion. Clayton Morris MD Carotid Artery Ultrasound 02/11/17 0000 Signed Impressions: Service Date/Time: Saturday, February 11, 2017 17:27 - CONCLUSION: 1. Occluded left ICA. 2. Patent right carotid. 3. Antegrade flow involving both vertebral arteries. Juan Love Jr., MD (Rena Smith) Assessment and Plan Assessment and Plan ASHD s/p RCA stent 09/2016 Dr Will at [facility] CMP EF 30% AICD 12/2016 Dr Mathew at [facility] Carotid stenosis hx of occluded left carotid artery History atrial fibrillation/atrial flutter HTN HLD CVA with deficits MULTIPLE Hospital admissions at [facility] Non compliance PLAN: Interrogate AICD evaluate for recurrent AF/Aflutter warranting oral AC. The patient said he was on warfarin monitored by Dr Alvarez's office, however, I called the office to check and it is stated that he is not on warfarin monitored by the office. Continue current therapy. The patient was seen and evaluated by Dr Hammer who completed face to face encounter and physical exam and participated in evaluation and management. (Rena Smith) Assessment and Plan Pt has seen multiple cardiologists had ICD place by Dr Mathew. Will follow up with Dr Stokes/Priyanka (Tomasa Hammer MD) Rena Smith Feb 13, 2017 14:39 Tomasa Hammer MD Feb 13, 2017 18:45
[2017-02-13 16:06] LABS: HEMATOCRIT 40.9 % (39.0-51.0); MEAN CELL VOLUME 89.4 FL (80.0-100.0); MEAN CORPUSCULAR HEMOGLOBIN 29.9 PG (27.0-34.0); MEAN CORPUSCULAR HGB CONC 33.4 % (32.0-36.0); PLATELET COUNT 195 TH/MM3 (150-450); RED BLOOD COUNT 4.58 MIL/MM3 (4.50-5.90); RED CELL DISTRIBUTION WIDTH 13.9 % (11.6-17.2); REVIEW FLAG FINAL; WHITE BLOOD COUNT 5.5 TH/MM3 (4.0-11.0)
[2017-02-13 16:26] LABS: BICARBONATE 27.8 MEQ/L (21.0-32.0); POTASSIUM 4.3 MEQ/L (3.5-5.1)
--- NOTE | 2017-02-13 18:25 | HHI.FF ---
Face to Face Verification Diagnosis: (1) Paroxysmal a-fib (2) HLD (hyperlipidemia) (3) GERD (gastroesophageal reflux disease) (4) TIA (transient ischemic attack) Physical Therapy Order: Evaluate and Treat Occupational Therapy Order: Evaluate and Treat Home Health Nursing Order: Medical education Home Health Aide Order: To Assist In: Bathing and personal care Food And Beverage Director Order: To Evaluate: Living conditions/environment I have seen patient Frandy Sosa on 02/13/17. My clinical findings support the need for the requested home health care services because: Ltd mobility - disease progression Deconditioned w/ increased weakness I certify that my clinical findings support that this patient is homebound because: Impaired cognitive ability/safety Unsteady gait/balance Radha Dickerson Feb 13, 2017 18:25
[2017-02-13] MEDS ORDERED: ATORVASTATIN 80 MG TAB PO SCH (21:00)
[2017-02-13 22:07] LABS: BLOOD, URINE NEG (NEG); GLUCOSE,URINE 1000 mg/dL (NEG); KETONE, URINE NEG (NEG); MUCUS URINE FEW /lpf (OCC); NITRITE,URINE NEG (NEG); SQUAMOUS EPITHELIAL CELL URINE <1 /hpf (0-5); URINE COLOR YELLOW (YELLW/STRAW)
[2017-02-14 01:33] VITALS: BP 133/60; PULSE 63; RESP 18; TEMP 98.9; O2SAT 97
[2017-02-14] MEDS: ACETAMIN 325 MG/BUTALBITAL 50 MG/CAFFEINE 40 MG TAB PO PRN (04:19)
[2017-02-14 05:58] VITALS: BP 147/56; PULSE 58; RESP 20; TEMP 97.4; O2SAT 99
[2017-02-14 08:00] VITALS: PULSE 59
[2017-02-14 08:18] VITALS: BP 136/61; PULSE 60; RESP 20; TEMP 98.1; O2SAT 97
[2017-02-14] MEDS ORDERED: ASPIRIN 81 MG CHEW TAB CHEW SCH (09:00)
[2017-02-14] MEDS: SODIUM CHLORIDE 0.9% FLUSH 5 ML FLUSH IV FLUSH SCH (09:00)
[2017-02-14] MEDS: CLOPIDOGREL 75 MG TAB PO SCH (09:02)
[2017-02-14] MEDS: CARVEDILOL 6.25 MG TAB PO SCH (09:03)
[2017-02-14] MEDS: PANTOPRAZOLE SOD 20 MG DELAYED RELEASE TAB PO SCH (09:03)
--- NOTE | 2017-02-14 10:03 | PD.CARD.PN ---
Subjective Subjective Remarks The patient denies CP, palpitations or SOB. Denies recurrent TIA symptoms. Eager to be discharged (Rena Smith) Objective Medications Current Medications Medications (Trade) Dose Ordered Sig/Veena Route Start Time Stop Time Status Last Admin (NS Flush) 2 ml BID IV FLUSH 02/11/17 21:00 02/14/17 09:00 (NS Flush) 2 ml UNSCH PRN IV FLUSH 02/11/17 13:15 02/12/17 11:40 (Lovenox Inj) 30 mg Q24H SQ 02/11/17 14:00 02/13/17 13:02 (Fioricet 325-50-40) 2 tab Q4H PRN PO 02/11/17 17:30 02/14/17 04:19 (Plavix) 75 mg DAILY PO 02/13/17 12:15 02/14/17 09:02 (Coreg) 6.25 mg Q12HR PO 02/13/17 12:15 02/14/17 09:03 (Lipitor) 80 mg HS PO 02/13/17 21:00 02/13/17 21:52 (Protonix) 20 mg DAILY PO 02/13/17 12:15 02/14/17 09:03 (Aspirin Chew) 81 mg DAILY CHEW 02/14/17 09:00 02/14/17 09:03 Vital Signs / I&O Vital Signs Date Time Temp Pulse Resp B/P (MAP) Pulse Ox O2 Delivery O2 Flow Rate FiO2 02/14/17 08:18 98.1 60 20 136/61 (86) 97 02/14/17 05:58 97.4 58 20 147/56 (86) 99 02/14/17 01:33 98.9 63 18 133/60 (84) 97 02/13/17 22:20 98.2 65 20 136/64 (88) 99 02/13/17 18:00 61 02/13/17 16:27 97.6 50 17 129/60 (83) 98 02/13/17 14:00 44 02/13/17 11:44 97.6 64 17 150/70 (96) 99 I/O 02/13/17 02/13/17 02/13/17 02/14/17 02/14/17 02/14/17 07:00 15:00 23:00 07:00 15:00 23:00 Intake Total 480 ml 360 ml Output Total 1250 ml 100 ml Balance -1250 ml 380 ml 360 ml Intake Oral 480 ml 360 ml Output Urine Total 1250 ml 100 ml # Voids 2 3 1 # Bowel Movements 0 1 Physical Exam GENERAL: Elderly male sitting up in the chair SKIN: Warm and dry. HEAD: Normocephalic. EYES: No scleral icterus. No injection or drainage. NECK: Supple, trachea midline. No JVD or lymphadenopathy. CARDIOVASCULAR: Regular rate and rhythm without murmurs, gallops, or rubs. RIGHT chest ICD RESPIRATORY: Breath sounds equal bilaterally. No accessory muscle use. GASTROINTESTINAL: Abdomen soft, non-tender, nondistended. MUSCULOSKELETAL: Right hemisphere deficits BACK: Nontender without obvious deformity. No CVA tenderness. Laboratory Laboratory Tests Test 02/13/17 15:38 02/13/17 16:45 White Blood Count 5.5 TH/MM3 Red Blood Count 4.58 MIL/MM3 Hemoglobin 13.7 GM/DL Hematocrit 40.9 % Mean Corpuscular Volume 89.4 FL Mean Corpuscular Hemoglobin 29.9 PG Mean Corpuscular Hemoglobin Concent 33.4 % Red Cell Distribution Width 13.9 % Platelet Count 195 TH/MM3 Mean Platelet Volume 7.5 FL Blood Urea Nitrogen 16 MG/DL Creatinine 1.11 MG/DL Random Glucose 140 MG/DL Calcium Level 8.8 MG/DL Sodium Level 137 MEQ/L Potassium Level 4.3 MEQ/L Chloride Level 103 MEQ/L Carbon Dioxide Level 27.8 MEQ/L Anion Gap 6 MEQ/L Estimat Glomerular Filtration Rate 66 ML/MIN Urine Color YELLOW Urine Turbidity CLEAR Urine pH 5.0 Urine Specific [place] 1.027 Urine Protein TRACE mg/dL Urine Glucose (UA) 1000 mg/dL Urine Ketones NEG mg/dL Urine Occult Blood NEG Urine Nitrite NEG Urine Bilirubin NEG Urine Urobilinogen LESS THAN 2.0 MG/DL Urine Leukocyte Esterase NEG Urine RBC LESS THAN 1 /hpf Urine WBC 1 /hpf Urine Squamous Epithelial Cells <1 /hpf Urine Mucus FEW /lpf Urine Opiates Screen NEG Urine Barbiturates Screen POS Urine Amphetamines Screen NEG Urine Benzodiazepines Screen NEG Urine Cocaine Screen NEG Urine Cannabinoids Screen NEG (Rena Smith) Assessment and Plan Assessment and Plan ASHD s/p RCA stent 09/2016 Dr Will at [facility] CMP EF 30% AICD 12/2016 Dr Mathew at [facility] Carotid stenosis hx of occluded left carotid artery History atrial fibrillation/atrial flutter. No recent AF/ALT on device check HTN HLD CVA with deficits MULTIPLE Hospital admissions at [facility] Non compliance? PLAN: Continue ASA and plavix No atrial fib/flut since implantation on device check yesterday. Continue BB and statin. Add lisinopril 5 mg The patient's regular menagerie caretaker is Dr Stokes. He will need to follow up with him in 1 week. The patient was seen and evaluated by Dr Hammer who completed face to face encounter and physical exam and participated in evaluation and management. (Rena Smith) Assessment and Plan The exam, history, and the medical decision-making described in the above note were completed with the assistance of the mid-level provider. I reviewed and agree with the findings presented. Will FU with Dr Mathew and Dr Stokes (Tomasa Hammer MD) Rena Smith Feb 14, 2017 10:03 Tomasa Hammer MD Feb 14, 2017 14:06
[2017-02-14] MEDS ORDERED: LISINOPRIL 5 MG TAB PO SCH (10:15)
[2017-02-14] MEDS ORDERED: PLAV75TA29 PO (12:01)
[2017-02-14] MEDS ORDERED: CARV6.25 PO (12:01)
[2017-02-14] MEDS ORDERED: ASPI81CH25 CHEW (12:01)
[2017-02-14] MEDS ORDERED: LISI-519 PO (12:01)
[2017-02-14] MEDS ORDERED: ATOR1TAB18 PO (12:01)
[2017-02-14 12:36] VITALS: BP 114/60; PULSE 61; RESP 18; TEMP 97.7; O2SAT 97
--- NOTE | 2017-02-14 12:38 | HHI.DS ---
Discharge Summary Admission Date Feb 11, 2017 at 13:09 Discharge Date: Feb 14, 2017 Admitting Diagnosis stroke alert/TIA/aphasia (1) Paroxysmal a-fib ICD Codes: I48.0 - Paroxysmal atrial fibrillation Status: Chronic (2) HLD (hyperlipidemia) ICD Codes: E78.5 - Hyperlipidemia, unspecified Status: Chronic (3) GERD (gastroesophageal reflux disease) ICD Codes: K21.9 - Gastro-esophageal reflux disease without esophagitis Status: Chronic (4) CAD (coronary artery disease) ICD Codes: I25.10 - Atherosclerotic heart disease of [place] coronary artery without angina pectoris Status: Chronic Brief History 66-year-old male patient with history of previous stroke with left-sided deficits the summer, presents to the ER today brought in by EMS because of aphasia that started while he was eating diner at around 11 AM. He apparently was drooling out of the corner of his mouth and speaking abnormally according to chocolate coater. He states that his speech is still not quite normal. He denies any other symptoms, chest pains, shortness of breath, new weakness or numbness, or any other issues. Stroke alert was called the field by EMS. CBC/BMP: 02/13/17 1538 02/13/17 1538 Significant Findings Laboratory Tests Test 02/12/17 11:17 02/13/17 15:38 02/13/17 16:45 Hemoglobin A1c 6.5 % (4.3-6.0) Triglycerides Level 199 MG/DL (42-150) Cholesterol Level 229 MG/DL (120-200) LDL Cholesterol 148 MG/DL (0-99) Random Glucose 140 MG/DL (74-106) Estimat Glomerular Filtration Rate 66 ML/MIN (>89) Urine Glucose (UA) 1000 mg/dL (NEG) Urine Mucus FEW /lpf (OCC) Urine Barbiturates Screen POS (NEG) PE at Discharge GENERAL: Alert and coopertive. SKIN: Warm and dry. HEAD: Normocephalic. EYES: No scleral icterus. No injection or drainage. NECK: Supple, trachea midline. No JVD or lymphadenopathy. CARDIOVASCULAR: Regular rate and rhythm without murmurs, gallops, or rubs. RESPIRATORY: Breath sounds equal bilaterally. No accessory muscle use. GASTROINTESTINAL: Abdomen soft, non-tender, nondistended. MUSCULOSKELETAL: No cyanosis, or edema. BACK: Nontender without obvious deformity. No CVA tenderness. Hospital Course 66-year-old male patient with history of previous stroke with left-sided deficits the summer, presents to the ER today brought in by EMS because of aphasia that started while he was eating diner at around 11 AM. He apparently was drooling out of the corner of his mouth and speaking abnormally according to chocolate coater. He states that his speech is still not quite normal. He denies any other symptoms, chest pains, shortness of breath, new weakness or numbness, or any other issues. No acute neurologic deficit noted findings per neurology is a result of remote ischemic stroke. Patient is also followed by cardiology and Pacer interrogated. Recommended to discharge on ASA and plavix only and follow up with cardiology. follow up appt made with Dr. Alvarez and [facility] ordered. PT/OT Pt Condition on Discharge: Good Discharge Disposition: Disch w/ Home Health Serv Discharge Instructions DIET: Follow Instructions for: Heart Healthy Diet Speech Therapy-Diet Recommenda: Regular Activities you can perform: Regular-No Restrictions Follow up Referrals: Cardiology DR. ALVARADO PCP Follow-up @ [facility] Follow up appt on02/27 at 10:00 New Medications: Aspirin (Aspirin Low Strength) 81 Mg Chew 81 MG CHEW DAILY for Blood Clot Prevention for 30 Days, #30 EA Atorvastatin (Atorvastatin) 80 Mg Tab 80 MG PO HS for Cholesterol Management for 30 Days, #31 TAB Carvedilol (Coreg) 6.25 Mg Tab 6.25 MG PO Q12HR for Blood Pressure Management for 30 Days, #30 TAB Clopidogrel (Plavix) 75 Mg Tab 75 MG PO DAILY for Stroke Prevention for 30 Days, #30 TAB Lisinopril (Lisinopril) 5 Mg Tab 5 MG PO DAILY for Blood Pressure Management for 30 Days, #30 TAB Discontinued Medications: Amiodarone 200 mg (Pacerone 200 mg) 200 Mg Tab Carvedilol 3.125 mg (Coreg 3.125 mg) 3.125 Mg Tab Enalapril Maleate (Vasotec) 5 Mg Tab Miscellaneous (No Current Meds) Misc Simvastatin 20 mg tab (Zocor) 20 Mg Tab Radha Dickerson Feb 14, 2017 12:38
== END 2017-02-14 14:46 | disposition home health service (06) | DRG 69 ==
LOC: NEPC 11:46 → NEDA 13:06 → OBSVTOIN 13:09 → N05A 15:29
PROVIDERS: ADMIT Family Medicine; ATTEND Family Medicine
DX: G45.9 Transient cerebral ischemic attack, unspecified (principal); I42.9 Cardiomyopathy, unspecified; I69.351 Hemiplegia and hemiparesis following cerebral infarction affecting right dominant side; I48.0 Paroxysmal atrial fibrillation; E78.5 Hyperlipidemia, unspecified; K21.9 Gastro-esophageal reflux disease without esophagitis; I10 Essential (primary) hypertension; I25.10 Atherosclerotic heart disease of native coronary artery without angina pectoris; I65.22 Occlusion and stenosis of left carotid artery; I69.392 Facial weakness following cerebral infarction; F17.210 Nicotine dependence, cigarettes, uncomplicated; Z95.5 Presence of coronary angioplasty implant and graft; Z95.810 Presence of automatic (implantable) cardiac defibrillator; Z91.041 Radiographic dye allergy status
CPT/HCPCS: 70450; 80048; 80061; 80307; 81001; 82435; 82550; 82565; 82947; 83036; 84132; 84295; 84484; 84520; 85025; 85027; 85384; 85610; 85730; 86850; 86900; 86901; 93005; 93306; 93880; J1650; J7030